=== PATIENT | male | born 1980 | race Asian ===

== ENCOUNTER 2017-09-27 20:09 | Inpatient (IN) | payer OTHER ==
[2017-09-27 21:14] LABS: ADD MAN DIFF? NO
[2017-09-27] MEDS: PIPER-TAZO 3.375 GM IV (PMX) 50 ML IVPB (21:15)
[2017-09-27] MEDS: SODIUM CHLORIDE 0.9% 1L BAG IV* (21:15)
[2017-09-27 21:21] LABS: BASOPHIL # 0.1 10^3/ul (0.0-0.1); BASOPHILS % 0.3 % (0.0-2.0); EOSINOPHILS # 0.1 10^3/ul (0.0-0.5); EOSINOPHILS % 0.5 % (0.0-7.0); HEMATOCRIT 41.3 % (42.0-52.0); HEMOGLOBIN 13.3 g/dl (14.0-18.0); LYMPHOCYTES # 0.9 10^3/ul (0.8-2.9); LYMPHOCYTES % 5.8 % (15.0-51.0); MEAN CORPUSCULAR HEMOGLOBIN 30.9 pg (29.0-33.0); MEAN CORPUSCULAR HGB CONC 32.2 g/dl (32.0-37.0); MEAN PLATELET VOLUME 10.2 fl (7.4-10.4); MONOCYTE # 1.3 10^3/ul (0.3-0.9); MONOCYTES % 8.3 % (0.0-11.0); NEUTROPHIL # 12.7 10^3/ul (1.6-7.5); NEUTROPHILS % 83.4 % (39.0-77.0); PLATELET COUNT 231 10^3/UL (140-415); RED CELL DISTRIBUTION WIDTH 15.4 % (11.5-14.5)
[2017-09-27 21:21] LABS: WHITE BLOOD COUNT 15.2 10^3/ul (4.8-10.8)
[2017-09-27 21:38] LABS: INR 0.93; PROTIME 12.5 Sec (11.9-14.9)
[2017-09-27] MEDS ORDERED: ACETAMINOPHEN 325 MG TAB PO (22:00)
[2017-09-27] MEDS: VANCOMYCIN 1 GM (PMX) 250 ML IVPB (22:00)
[2017-09-27] MEDS ORDERED: ONDANSETRON 4 MG INJ IV (22:00)
[2017-09-27] MEDS ORDERED: BISACODYL (EC) 5 MG TAB PO (22:30)
[2017-09-27] MEDS ORDERED: HYDROCODONE/APAP (5/325) TAB PO (22:30)
[2017-09-27] MEDS ORDERED: NACL 0.9% 3 ML SYG IV (22:30)
[2017-09-27] MEDS ORDERED: VANCOMYCIN IV PER PHARMACY XX (22:30)
[2017-09-27] MEDS ORDERED: DOCUSATE SODIUM 100 MG CAP PO (22:30)
[2017-09-27] MEDS ORDERED: ONDANSETRON 4 MG TAB PO (22:30)
[2017-09-27 22:52] LABS: LACTIC ACID 1.7 mmol/L (0.5-2.0)
[2017-09-27 23:40] LABS: URIC ACID 5.3 mg/dl (3.1-7.9)
[2017-09-28 00:41] LABS: ERYTHROCYTE SEDIMENTATION RATE 40 mm/Hr (0-15)
[2017-09-28] MEDS: PIPER-TAZO 3.375 GM IV (PMX) 100 ML IVPB ×4 (01:57→18:50)
[2017-09-28 02:03] LABS: LACTIC ACID 1.5 mmol/L (0.5-2.0)
[2017-09-28 05:31] LABS: ADD MAN DIFF? NO
[2017-09-28 05:32] LABS: BASOPHIL # 0.1 10^3/ul (0.0-0.1); BASOPHILS % 0.6 % (0.0-2.0); EOSINOPHILS # 0.2 10^3/ul (0.0-0.5); EOSINOPHILS % 1.1 % (0.0-7.0); HEMATOCRIT 38.5 % (42.0-52.0); HEMOGLOBIN 12.7 g/dl (14.0-18.0); LYMPHOCYTES # 1.3 10^3/ul (0.8-2.9); LYMPHOCYTES % 8.9 % (15.0-51.0); MEAN CORPUSCULAR HEMOGLOBIN 31.8 pg (29.0-33.0); MEAN CORPUSCULAR VOLUME 96.5 fl (82.0-101.0); MEAN PLATELET VOLUME 10.4 fl (7.4-10.4); MONOCYTE # 1.4 10^3/ul (0.3-0.9); MONOCYTES % 10.2 % (0.0-11.0); NEUTROPHIL # 10.8 10^3/ul (1.6-7.5); NEUTROPHILS % 77.3 % (39.0-77.0); PLATELET COUNT 224 10^3/UL (140-415); RED BLOOD COUNT 3.99 10^6/ul (4.70-6.10); RED CELL DISTRIBUTION WIDTH 15.5 % (11.5-14.5)
[2017-09-28] MEDS ORDERED: VANCOMYCIN 1.25 GM in SODIUM CHLORIDE 0.45 % 250 ML IVPB (06:00)
[2017-09-28 06:33] LABS: ALANINE AMINOTRANSFERASE 34 IU/L (13-69); ALBUMIN 3.2 g/dl (3.3-4.9); ALBUMIN/GLOBULIN RATIO 1.14; ALKALINE PHOSPHATASE 57 IU/L (42-121); ANION GAP 13 (8-16); ASPARTATE AMINO TRANSFERASE 27 IU/L (15-46); BLOOD UREA NITROGEN 19 mg/dl (7-20); C-REACTIVE PROTEIN 5.8 mg/dl (0.0-0.9); CALCIUM 8.8 mg/dl (8.4-10.2); CARBON DIOXIDE 25 mmol/L (21-31); CHLORIDE 108 mmol/L (97-110); CHOL/HDL RATIO 3.4 RATIO; CHOLESTEROL 109 mg/dl (100-200); GLUCOSE 95 mg/dl (70-220); HDL CHOLESTEROL 32 mg/dl (27-67); LDL CHOLESTEROL,CALCULATED 60 mg/dl; MAGNESIUM 1.9 mg/dl (1.7-2.5); POTASSIUM 3.7 mmol/L (3.5-5.1); SODIUM 142 mmol/L (135-144); TRIGLYCERIDES 83 mg/dl (0-149)
[2017-09-28 06:33] LABS: URIC ACID 3.6 mg/dl (3.1-7.9)
[2017-09-28 07:43] LABS: HEMOGLOBIN A1C 5.3 % (0-5.9)
[2017-09-28 08:31] LABS: ERYTHROCYTE SEDIMENTATION RATE 28 mm/Hr (0-15)
[2017-09-28] MEDS: VANCOMYCIN 1.5 GM in DEXTROSE 5% 500 ML IVPB ×2 (10:49→22:17)
[2017-09-28] MEDS: ACETAMINOPHEN 325 MG TAB PO (20:04)
[2017-09-29] MEDS: PIPER-TAZO 3.375 GM IV (PMX) 100 ML IVPB ×4 (01:23→19:43)
[2017-09-29 06:13] LABS: ABNORMAL IP MESSAGE 1; HEMATOCRIT 43.5 % (42.0-52.0); MEAN CORPUSCULAR HEMOGLOBIN 30.5 pg (29.0-33.0); MEAN CORPUSCULAR HGB CONC 32.2 g/dl (32.0-37.0); MEAN CORPUSCULAR VOLUME 94.8 fl (82.0-101.0); MEAN PLATELET VOLUME 10.5 fl (7.4-10.4); PLATELET COUNT 255 10^3/UL (140-415); POSITIVE DIFF @See below; RED BLOOD COUNT 4.59 10^6/ul (4.70-6.10); RED CELL DISTRIBUTION WIDTH 15.3 % (11.5-14.5)
[2017-09-29 06:13] LABS: WHITE BLOOD COUNT 10.8 10^3/ul (4.8-10.8)
[2017-09-29 06:18] LABS: ADD MAN DIFF? YES
[2017-09-29 06:50] LABS: CREATININE 1.29 mg/dl (0.61-1.24)
[2017-09-29 06:50] LABS: BLOOD UREA NITROGEN 23 mg/dl (7-20)
[2017-09-29 06:53] LABS: ANION GAP 14 (8-16); BLOOD UREA NITROGEN 22 mg/dl (7-20); CALCIUM 8.8 mg/dl (8.4-10.2); CARBON DIOXIDE 24 mmol/L (21-31); CHLORIDE 109 mmol/L (97-110); CREATININE 1.34 mg/dl (0.61-1.24); GLUCOSE 91 mg/dl (70-220); SODIUM 143 mmol/L (135-144)
[2017-09-29 09:05] LABS: BAND NEUTROPHILS #M 1.5 10^3/ul (0.0-0.6); BAND NEUTROPHILS % (M) 14 % (0-4); EOSINOPHILS % (M) 1 % (0-7); LYMPHOCYTES #M 1.7 10^3/ul (0.8-2.9); LYMPHOCYTES % (M) 16 % (15-51); MONOCYTE #M 1.4 10^3/ul (0.3-0.9); MONOCYTES % (M) 13 % (0-11); MYELOCYTES #M 0.1 10^3/ul (0.0-0.0); MYELOCYTES % (M) 1 % (0-0); PLATELET ESTIMATE NORMAL; POLYCHROMASIA 1+ (0-0); REACTIVE LYMPHOCYTES #M 0.5 10^3/ul (0.0-0.0); REACTIVE LYMPHOCYTES% (M) 5 % (0-0); SEG NEUT #M 5.8 10^3/ul (1.7-7.5); SEGMENTED NEUTROPHILS (M) % 52 % (39-77); SMUDGE%M 2 % (0-0)
[2017-09-29] MEDS: VANCOMYCIN 1.5 GM in DEXTROSE 5% 500 ML IVPB ×2 (11:11→21:26)
[2017-09-29] MEDS ORDERED: DEXTROSE 5%-0.45% NACL 1,000 ML IV (11:30)
[2017-09-29] MEDS: ACETAMINOPHEN 325 MG TAB PO (14:00)
[2017-09-29 21:43] LABS: VANCOMYCIN,TROUGH 10.1 ug/ml (10.0-20.0)
[2017-09-30] MEDS: PIPER-TAZO 3.375 GM IV (PMX) 100 ML IVPB ×2 (01:36→06:42)
[2017-09-30] MEDS: VANCOMYCIN 1.5 GM in DEXTROSE 5% 500 ML IVPB (10:01)
[2017-09-30] MEDS: ACETAMINOPHEN 325 MG TAB PO (10:06)
[2017-10-01] MEDS ORDERED: LEVOFLOXACIN 500 MG TAB PO (06:00)
== END 2017-09-30 14:33 | disposition home or self-care (01) | DRG 603 ==
LOC: MS1 22:00 → E/R 20:09
PROVIDERS: Family Medicine
DX: L03.113 Cellulitis of right upper limb (principal); I10 Essential (primary) hypertension; M70.21 Olecranon bursitis, right elbow; N28.9 Disorder of kidney and ureter, unspecified; L02.413 Cutaneous abscess of right upper limb
CPT/HCPCS: 36415; 73080-RT; 73221; 76882-RT; 80048; 80053; 80061; 80202; 82565; 83036; 83605; 83735; 84443; 84520; 84560; 85025; 85610; 85651; 85730; 86140; 87040; 93005; 96365; 96366; 96367; 99285-25